=== PATIENT | female | born 2000 | race Caucasian/White ===

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

== ENCOUNTER 2019-01-15 18:42 | Emergency (ER) | payer OTHER, MEDICAID | END 2019-01-15 19:34 | disposition home or self-care (01) | LOC: E/R 18:42 | DX: S09.90XA Unspecified injury of head, initial encounter (principal); W22.09XA Striking against other stationary object, initial encounter; Y92.9 Unspecified place or not applicable | CPT/HCPCS: 99283 ==